=== PATIENT | female | born 1985 | race Hispanic/Latino ===

== ENCOUNTER → 2024-03-19 | Outpatient (REF) | payer OTHER ==
[~2024-03-19] MED LIST: BETAMETHASONE DISODIUM PHOS 6 MG/ML VIAL IM ONE; BUPIVACAINE HC 0.75% PF 10ML VIAL INJ ONE; IOPAMIDOL 200 MG/ML 20 ML VIAL IT ONE; LIDOCAINE HCL 1% LOCAL INJ 20 ML VIAL ONE
== END ==
LOC: DX 12:22
PROVIDERS: ATTEND Radiology Vascular & Interventional Radiology
DX: M54.50 Low back pain, unspecified (principal)
CPT/HCPCS: 81025; J2003; Q9967